=== PATIENT | female | born 1995 | race Hispanic/Latino ===

== ENCOUNTER 2017-03-12 09:00 | Emergency (ER) | payer MEDICAID, OTHER ==
[2017-03-12 09:33] LABS: APPEARANCE,URINE SL CLOUDY (CLEAR); BILIRUBIN,URINE NEGATIVE (NEGATIVE); COLOR,URINE YELLOW (YELLOW); GLUCOSE, URINE (UA) NEGATIVE (NEGATIVE); KETONES,URINE NEGATIVE (NEGATIVE); LEUKOCYTE ESTERASE ,URINE MODERATE (NEGATIVE); NITRATE,URINE NEGATIVE (NEGATIVE); OCCULT BLOOD,URINE LARGE (NEGATIVE); PROTEIN,URINE NEGATIVE (NEGATIVE); UROBILINOGEN,URINE 0.2 mg/dL (0.2-1.0)
[2017-03-12 09:34] LABS: BASOPHILS % (AUTO) 0.4 % (0.0-5.0); EOSINOPHILS % (AUTO) 2.1 % (0.0-8.0); HEMATOCRIT 39.2 % (36-48); LYMPHOCYTES % (AUTO) 13.9 % (21.0-51.0); MEAN CORPUSCULAR HEMOGLOBIN 27.4 pg (27.0-33.0); MEAN CORPUSCULAR HGB CONC 33.9 g/dL (32.0-36.0); MONOCYTES % (AUTO) 6.8 % (3.0-13.0); NEUTROPHILS % (AUTO) 76.8 % (40.0-77.0); PLATELET COUNT (AUTO) 273 K/uL (130-400); RED BLOOD CELL COUNT(AUTO) 4.84 MIL/uL (4.00-5.50); RED CELL DISTRIBUTION WIDTH 13.9 % (11.0-15.5); WHITE BLOOD COUNT (AUTO) 14.4 K/uL (4.8-10.8)
[2017-03-12 09:36] LABS: HCG,QUAL RESULT NEGATIVE (NEGATIVE)
[2017-03-12 10:22] LABS: BACTERIA,URINE Moderate /HPF (None Seen); RBC,URINE 0-1 /HPF (0-1)
[2017-03-12 10:23] LABS: SQUAMOUS EPITHELIAL CELL,UR Many /LPF (0-2)
[2017-03-12] MEDS ORDERED: CEFTRIAXONE SODIUM 500 MG VIAL ONE (10:59)
[2017-03-12] MEDS ORDERED: LIDOCAINE HCL-MPF 1% 2ML VIAL ONE (11:00)
[2017-03-12] MEDS ORDERED: AZITHROMYCIN 250 MG TABLET PO ONE (11:00)
== END 2017-03-12 11:23 | disposition home or self-care (01) ==
LOC: EDH 09:00
DX: N39.0 Urinary tract infection, site not specified (principal); N94.6 Dysmenorrhea, unspecified
CPT/HCPCS: 36415; 81001; 81025; 85025; 87210; 87486; 87797; 96372; 99284; J0696; J3490

== ENCOUNTER 2018-01-22 18:23 | Emergency (ER) | payer MEDICAID, OTHER | END 2018-01-22 20:25 | disposition home or self-care (01) | LOC: EDH 18:23 → EEVIPCON 18:23 → EDH 20:25 | DX: S09.90XA Unspecified injury of head, initial encounter (principal); G44.319 Acute post-traumatic headache, not intractable; Z98.890 Other specified postprocedural states; Z72.0 Tobacco use; Y04.2XXA Assault by strike against or bumped into by another person, initial encounter; Y93.89 Activity, other specified; Y92.89 Other specified places as the place of occurrence of the external cause; Y99.8 Other external cause status | CPT/HCPCS: 70450; 81025 ==

== ENCOUNTER 2018-02-17 00:45 | Emergency (ER) | payer OTHER ==
[2018-02-17 02:58] LABS: BASOPHILS % (AUTO) 0.8 % (0.0-5.0); EOSINOPHILS % (AUTO) 1.8 % (0.0-8.0); HEMATOCRIT 38.8 % (36-48); LYMPHOCYTES % (AUTO) 18.4 % (21.0-51.0); MEAN CORPUSCULAR HEMOGLOBIN 28.3 pg (27.0-33.0); MEAN CORPUSCULAR HGB CONC 33.9 g/dL (32.0-36.0); MEAN CORPUSCULAR VOLUME 83.5 fL (79-99); PLATELET COUNT (AUTO) 271 K/uL (130-400); RED BLOOD CELL COUNT(AUTO) 4.65 MIL/uL (4.00-5.50); WHITE BLOOD COUNT (AUTO) 16.2 K/uL (4.8-10.8)
[2018-02-17 03:16] LABS: CREATININE 0.7 mg/dL (0.5-1.5); POTASSIUM 3.4 mmol/L (3.5-5.1)
[2018-02-17 03:21] LABS: APPEARANCE,URINE Cloudy (CLEAR); BILIRUBIN,URINE Negative (NEGATIVE); COLOR,URINE Yellow (YELLOW); GLUCOSE, URINE (UA) Negative (NEGATIVE); KETONES,URINE Trace mg/dL (NEGATIVE); LEUKOCYTE ESTERASE ,URINE Small (NEGATIVE); NITRATE,URINE Negative (NEGATIVE); OCCULT BLOOD,URINE Large (NEGATIVE); PH,URINE 5.5 (5.0-8.0); PROTEIN,URINE Negative (NEGATIVE); UROBILINOGEN,URINE 0.2 mg/dL (0.2-1.0)
[2018-02-17 03:27] LABS: ALBUMIN 3.8 g/dL (3.5-5.0); BILIRUBIN,TOTAL 0.3 mg/dL (0.2-1.0)
[2018-02-17 03:28] LABS: AMPHET/METH SCREEN,URINE NEGATIVE (NEGATIVE); BARBITURATE SCREEN, URINE NEGATIVE (NEGATIVE); BENZODIAZEPINES SCREEN,URINE NEGATIVE (NEGATIVE); CANNABINOID SCREEN,URINE NEGATIVE (NEGATIVE); COCAINE SCREEN,URINE NEGATIVE (NEGATIVE); OPIATE SCREEN,URINE NEGATIVE (NEGATIVE); PHENCYCLIDINE SCREEN,URINE NEGATIVE (NEGATIVE)
[2018-02-17 03:32] LABS: PARTIAL THROMBOPLASTIN TIME 29.9 SEC (26.3-35.5); PROTHROMBIN TIME 10.5 SEC (9.6-11.6)
[2018-02-17 03:51] LABS: BACTERIA,URINE Moderate /HPF (None Seen)
== END 2018-02-17 04:17 | disposition home or self-care (01) ==
LOC: EDH 00:45
DX: O20.9 Hemorrhage in early pregnancy, unspecified (principal); R10.9 Unspecified abdominal pain; R11.0 Nausea; Z3A.01 Less than 8 weeks gestation of pregnancy
CPT/HCPCS: 36415; 76801; 80053; 80305; 81001; 84702; 85025; 85610; 85730

== ENCOUNTER 2018-02-25 17:21 | Emergency (ER) | payer OTHER ==
[2018-02-25 19:00] LABS: BASOPHILS % (AUTO) 0.7 % (0.0-5.0); LYMPHOCYTES % (AUTO) 20.1 % (21.0-51.0); MEAN CORPUSCULAR HEMOGLOBIN 28.6 pg (27.0-33.0); MEAN CORPUSCULAR HGB CONC 34.3 g/dL (32.0-36.0); MEAN CORPUSCULAR VOLUME 83.6 fL (79-99); MONOCYTES % (AUTO) 9.2 % (3.0-13.0); NUCLEATED RED BLOOD CELLS 0.1 % (0.0-0.19); PLATELET COUNT (AUTO) 306 K/uL (130-400); RED BLOOD CELL COUNT(AUTO) 4.55 MIL/uL (4.00-5.50); RED CELL DISTRIBUTION WIDTH 13.7 % (11.0-15.5); WHITE BLOOD COUNT (AUTO) 11.1 K/uL (4.8-10.8)
== END 2018-02-25 20:54 | disposition home or self-care (01) ==
LOC: EDH 17:21
DX: O03.9 Complete or unspecified spontaneous abortion without complication (principal); Z98.890 Other specified postprocedural states; Z72.0 Tobacco use
CPT/HCPCS: 36415; 84702; 85025; 86900; 86901

== ENCOUNTER 2018-07-01 20:05 | Emergency (ER) | payer BC ==
[2018-07-01] MEDS ORDERED: BENZONATATE 100 MG CAPSULE PO ONE (20:49)
[2018-07-01] MEDS ORDERED: ONDANSETRON HCL 4 MG/2 ML VIAL ONE (20:49)
[2018-07-01] MEDS ORDERED: ACETAMINOPHEN EXTRA STRENGTH 500 MG TABLET ONE (20:49)
[2018-07-01 20:57] LABS: BASOPHILS % (AUTO) 0.5 % (0.0-5.0); EOSINOPHILS % (AUTO) 3.3 % (0.0-8.0); HEMATOCRIT 37.8 % (36-48); LYMPHOCYTES % (AUTO) 10.3 % (21.0-51.0); MEAN CORPUSCULAR VOLUME 82.3 fL (79-99); MONOCYTES % (AUTO) 14.3 % (3.0-13.0); NEUTROPHILS % (AUTO) 71.6 % (40.0-77.0); PLATELET COUNT (AUTO) 216 K/uL (130-400); RED BLOOD CELL COUNT(AUTO) 4.59 MIL/uL (4.00-5.50); RED CELL DISTRIBUTION WIDTH 13.7 % (11.0-15.5); WHITE BLOOD COUNT (AUTO) 8.8 K/uL (4.8-10.8)
[2018-07-01 21:11] LABS: CREATININE 0.8 mg/dL (0.5-1.5); POTASSIUM 3.3 mmol/L (3.5-5.1)
[2018-07-01 21:16] LABS: ALBUMIN 3.6 g/dL (3.5-5.0); BILIRUBIN,TOTAL 0.3 mg/dL (0.2-1.0); TOTAL PROTEIN, SERUM 7.5 g/dL (6.0-8.3)
[2018-07-01 21:23] LABS: RAPID GROUP A STREP NEGATIVE (NEGATIVE)
[2018-07-01] MEDS ORDERED: IBUPROFEN 600 MG TABLET ONE (21:35)
[2018-07-01] MEDS ORDERED: POTASSIUM CHLORIDE 20 MEQ ERTAB PO ONE (21:35)
== END 2018-07-01 22:23 | disposition home or self-care (01) ==
LOC: EDH 20:05
DX: J10.1 Influenza due to other identified influenza virus with other respiratory manifestations (principal); Z87.891 Personal history of nicotine dependence
CPT/HCPCS: 36415; 71046; 80053; 81025; 85025; 87804 ×2; 87880; 96374; 99285; J2405

== ENCOUNTER 2018-07-03 16:06 | Emergency (ER) | payer BC ==
[2018-07-03] MEDS ORDERED: LORAZEPAM 2 MG/ML 1 ML VIAL ONE (16:33)
== END 2018-07-03 17:31 | disposition home or self-care (01) ==
LOC: EDH 16:06
DX: R06.4 Hyperventilation (principal); R06.02 Shortness of breath; Z98.890 Other specified postprocedural states
CPT/HCPCS: 96374; 99284; J2060

== ENCOUNTER 2021-08-21 04:40 | Emergency (ER) | payer BC, OTHER ==
[~2021-08-21] VITALS: Ht 152.4 cm; Wt 80.3 kg
[2021-08-21 06:37] VITALS: BP 118/76
[2021-08-21] MEDS ORDERED: ACETAMINOPHEN 500 MG TABLET ONE (06:48)
[2021-08-21] MEDS ORDERED: AMOX500C2 PO (06:48)
[2021-08-21] MEDS ORDERED: IBUP-2070 PO (06:48)
[2021-08-21] MEDS ORDERED: AMOXICILLIN 500 MG CAPSULE PO ONE ×2 (06:48→07:00)
[2021-08-21] MEDS ORDERED: ACETAMINOPHEN 500 MG TABLET PO ONE (07:00)
== END 2021-08-21 06:55 | disposition home or self-care (01) ==
LOC: EDH 04:40
DX: I88.9 Nonspecific lymphadenitis, unspecified (principal); K08.89 Other specified disorders of teeth and supporting structures

== ENCOUNTER 2022-06-29 05:20 | Emergency (ER) | payer OTHER ==
[~2022-06-29] VITALS: Ht 152.4 cm; Wt 80.7 kg
[~2022-06-29 05:20] MED LIST: AMOX500C2 PO; IBUP-2070 PO
[2022-06-29] MEDS ORDERED: ONDANSETRON 4MG INJ IVP ONE (06:00)
[2022-06-29] MEDS ORDERED: 0.9%NACL 1000ML 1,000 ML IV ONE (06:00)
[2022-06-29 06:21] LABS: BASOPHILS % (AUTO) 0.3 % (0.0-5.0); EOSINOPHILS % (AUTO) 2.7 % (0.0-8.0); HEMATOCRIT 36.7 % (36-48); LYMPHOCYTES % (AUTO) 18.4 % (21.0-51.0); MEAN CORPUSCULAR HEMOGLOBIN 28.1 pg (27.0-33.0); MEAN CORPUSCULAR HGB CONC 34.9 g/dL (32.0-36.0); MEAN CORPUSCULAR VOLUME 80.7 fL (79-99); MONOCYTES % (AUTO) 6.7 % (3.0-13.0); NEUTROPHILS % (AUTO) 71.6 % (40.0-77.0); PLATELET COUNT (AUTO) 276 K/uL (130-400); RED BLOOD CELL COUNT(AUTO) 4.55 MIL/uL (4.00-5.50); RED CELL DISTRIBUTION WIDTH 13.1 % (11.0-15.5); WHITE BLOOD COUNT (AUTO) 12.8 K/uL (4.8-10.8)
[2022-06-29 06:24] LABS: APPEARANCE,URINE CLOUDY (CLEAR); BILIRUBIN,URINE NEGATIVE (NEGATIVE); COLOR,URINE LIGHT-YELLOW (YELLOW); GLUCOSE, URINE (UA) NEGATIVE (NEGATIVE); KETONES,URINE NEGATIVE (NEGATIVE); LEUKOCYTE ESTERASE ,URINE 500 Leu/uL (NEGATIVE); NITRATE,URINE NEGATIVE (NEGATIVE); OCCULT BLOOD,URINE NEGATIVE (NEGATIVE); PROTEIN,URINE 10 mg/dL (NEGATIVE); UROBILINOGEN,URINE 0.2 mg/dL (0.2-1.0)
[2022-06-29 06:40] LABS: ALBUMIN 3.9 g/dL (3.5-5.0); CREATININE 0.7 mg/dL (0.5-1.5); TOTAL PROTEIN, SERUM 7.3 g/dL (6.0-8.3)
[2022-06-29 06:53] LABS: MUCUS,URINE RARE LPF (None Seen); OTHER CASTS, URINE 1 /LPF (None Seen); SQUAMOUS EPITHELIAL CELL,UR MOD /HPF (0-2)
[2022-06-29 07:13] VITALS: BP 116/68
[2022-06-29] MEDS ORDERED: AZITHROMYCIN 250 MG TABLET PO ONE (07:20)
[2022-06-29] MEDS ORDERED: AZITHROMYCIN 250 MG TABLET PO SCH (07:30)
[2022-06-29] MEDS ORDERED: ONDA22I PO (07:39)
== END 2022-06-29 07:49 | disposition home or self-care (01) ==
LOC: EDH 05:20
DX: O99.611 Diseases of the digestive system complicating pregnancy, first trimester (principal); K52.9 Noninfective gastroenteritis and colitis, unspecified; O20.0 Threatened abortion; Z3A.01 Less than 8 weeks gestation of pregnancy
CPT/HCPCS: 99285; 96374; 96361; 80053; 84702; 83690; 85025; 86900; 86901; 87077 ×2; 87088; 87186 ×2; 81001; 36415; 76817; J7030; J2405

== ENCOUNTER 2022-07-02 23:19 | Emergency (ER) | payer OTHER ==
[~2022-07-02] VITALS: Ht 152.4 cm; Wt 81.7 kg
[~2022-07-02 23:19] MED LIST changes: +ONDA22I PO
[2022-07-02] MEDS: 0.9%NACL 1000ML 1,000 ML IV SCH (23:51)
[2022-07-02 23:55] LABS: APPEARANCE,URINE CLEAR (CLEAR); BILIRUBIN,URINE NEGATIVE (NEGATIVE); COLOR,URINE COLORLESS (YELLOW); GLUCOSE, URINE (UA) NEGATIVE (NEGATIVE); KETONES,URINE NEGATIVE (NEGATIVE); LEUKOCYTE ESTERASE ,URINE NEGATIVE Leu/uL (NEGATIVE); NITRATE,URINE NEGATIVE (NEGATIVE); OCCULT BLOOD,URINE NEGATIVE (NEGATIVE); PROTEIN,URINE NEGATIVE (NEGATIVE); UROBILINOGEN,URINE 0.2 mg/dL (0.2-1.0)
[2022-07-02 23:58] LABS: BASOPHILS % (AUTO) 0.3 % (0.0-5.0); HEMATOCRIT 35.1 % (36-48); LYMPHOCYTES % (AUTO) 25.2 % (21.0-51.0); MEAN CORPUSCULAR HEMOGLOBIN 27.9 pg (27.0-33.0); MEAN CORPUSCULAR HGB CONC 33.9 g/dL (32.0-36.0); MEAN CORPUSCULAR VOLUME 82.4 fL (79-99); MONOCYTES % (AUTO) 7.1 % (3.0-13.0); NEUTROPHILS % (AUTO) 64.1 % (40.0-77.0); PLATELET COUNT (AUTO) 263 K/uL (130-400); RED BLOOD CELL COUNT(AUTO) 4.26 MIL/uL (4.00-5.50); RED CELL DISTRIBUTION WIDTH 13.1 % (11.0-15.5); WHITE BLOOD COUNT (AUTO) 15.2 K/uL (4.8-10.8)
[2022-07-03 00:15] LABS: CREATININE 0.7 mg/dL (0.5-1.5); POTASSIUM 3.5 mmol/L (3.5-5.1)
[2022-07-03 00:41] LABS: ALBUMIN 3.7 g/dL (3.5-5.0); TOTAL PROTEIN, SERUM 7.5 g/dL (6.0-8.3)
[2022-07-03] MEDS: 0.9%NACL 1000ML 1,000 ML IV SCH (01:01)
[2022-07-03 01:47] VITALS: BP 110/64
== END 2022-07-03 02:33 | disposition home or self-care (01) ==
LOC: EDH 23:19
DX: O20.0 Threatened abortion (principal); Z3A.01 Less than 8 weeks gestation of pregnancy
CPT/HCPCS: 99284; 96360; 76801; 96361; 80053; 84702; 85025; 86850; 86900; 86901; 81003; 36415; J7030

== ENCOUNTER 2024-09-27 21:31 | Emergency (ER) | payer SELFPAY ==
[~2024-09-27] VITALS: Ht 152.4 cm; Wt 87.1 kg
--- NOTE | 2024-09-27 21:33 | NUR ---
UA CUP PROVIDED
[2024-09-27 22:17] LABS: APPEARANCE,URINE CLEAR (CLEAR); GLUCOSE, URINE (UA) NEGATIVE (NEGATIVE); LEUKOCYTE ESTERASE ,URINE NEGATIVE Leu/uL (NEGATIVE); NITRATE,URINE NEGATIVE (NEGATIVE); OCCULT BLOOD,URINE NEGATIVE (NEGATIVE)
[2024-09-27 22:18] LABS: ADD UA MICROSCOPIC NO
[2024-09-27 22:22] LABS: IMMATURE GRANULOCYTE ABSOLUTE 0.05 K/uL (0-1); NUCLEATED RED BLOOD CELLS 0.0 % (0.0-0.19); PLATELET COUNT (AUTO) 262 K/uL (130-400); RED BLOOD CELL COUNT(AUTO) 4.45 MIL/uL (4.00-5.50); RED CELL DISTRIBUTION WIDTH 13.8 % (11.0-15.5); WHITE BLOOD COUNT (AUTO) 13.3 K/uL (4.8-10.8)
[2024-09-27 22:34] LABS: CREATININE 0.6 mg/dL (0.5-1.0); GLOMERULAR FILTR. RATE CALC 125.0 mL/min (>90); GLUCOSE,RANDOM 104.0 mg/dL (70-105); SODIUM SERUM 140.0 mmol/L (136-145); UREA NITROGEN, BLOOD 12.0 mg/dL (7-18)
[2024-09-27] MEDS: 0.9%NACL 1000ML 1,000 ML IV ONE (23:05)
--- NOTE | 2024-09-27 23:09 | NUR ---
PATIENT TO CT SCAN.
--- NOTE | 2024-09-28 00:19 | HMCIMG ---
EXAM: CT Abdomen and Pelvis without IV contrast. CLINICAL HISTORY: Left flank pain. Rule out ureteric calculus. TECHNIQUE: Thin collimated axial CT images of the abdomen and pelvis were obtained, with sagittal and coronal reformatted images also submitted. A CT scan is done according to ALARA (As Low As Reasonably Achievable). CONTRAST: None. COMPARISON: None. FINDINGS: Unremarkable visualized lung parenchyma. No focal abnormality within the liver, gallbladder, pancreas, spleen, adrenals, or kidneys. Focal area of wall thickening with surrounding fat stranding in the descending colon. Bowel loops are normal in caliber without evidence of obstruction or ileus. The appendix is normal. There is no abnormality within the urinary bladder. Unremarkable reproductive organs. No lymphadenopathy. No free fluid. There is no acute osseous abnormality. IMPRESSIONS: Focal area of wall thickening with surrounding fat stranding in the descending colon, the differentials could be focal acute colitis, acute diverticulitis, or acute epiploic appendagitis. No renal or ureteric calculus. /Julian
[2024-09-28] MEDS ORDERED: AMOX1TAB16 PO (00:46)
--- NOTE | 2024-09-28 00:46 | ERN ---
General Chief Complaint: Flank Pain Stated Complaint: LEFT FLANK PAIN Time Seen by MD: 21:44 Time Seen by Midlevel: 21:44 Source: patient (CONSTITUTIONAL: Negative except for HPIHEAD/FACE: Negative except for HPIEENT: Negative except for HPIRESPIRATORY: Negative except for HPIGASTROINTESTINAL/ABDOMINAL: Negative except for HPIGENITOURINARY: Negative except for HPIMUSCULOSKELETAL: Negative except for HPIINTEGUMENTARY: Negative except for HPINEUROLOGICAL/PSYCH: Negative except for HPIHEMATOLOGIC/LYMPHATIC: Negative except for HPIAll Systems Negative, Except as noted above.13 point review of systems assessed and all negative except for above.) History of Present Illness Initial Comments The patient is a pleasant 28-year-old female presenting to the emergency department for evaluation of left flank pain that started one day ago. The pain is rated seven on a 0-10 scale. She has a associated nausea but no fever, dysuria, diarrhea, or any other symptoms at this time. Allergies: Coded Allergies: No Known Drug Allergies (Unverified Allergy, Unknown, 08/21/21) triamcinolone (Unverified Allergy, Unknown, 09/27/24) Home Meds Active Scripts Amoxicillin/Potassium Clav (Amox Tr-K Clv 875-125 mg Tab) 875 Mg-125 Mg Tablet, 1 EACH PO TID for 5 Days, #15 TAB 0 Refills Prov:LAKE HEARD 09/28/24 Ondansetron HCl (Zofran) 2 Mg/Ml Inj, 4 MG PO Q6H, #12 ML Prov:JOSUE RICK DO 06/29/22 Ibuprofen (Ibuprofen) 600 Mg Tablet, 600 MG PO Q6H PRN for PAIN, #30 TAB Prov:YUMIKO MAGUIRE MD 08/21/21 Amoxicillin (Amoxicillin) 500 Mg Capsule, 500 MG PO TID for 10 Days, #30 CAP 0 Refills Prov:YUMIKO MAGUIRE MD 08/21/21 Past Medical History Past Medical History: Other Medical History Other: TACHYCARDIA Past Surgical History: Surgical History Other: D & C Female( History) LMP: Sep 13, 2024 : 5 Para: 3 Aborts: 2 ROS Dictation CONSTITUTIONAL: Negative except for HPI HEAD/FACE: Negative except for HPI EENT: Negative except for HPI RESPIRATORY: Negative except for HPI GASTROINTESTINAL/ABDOMINAL: Negative except for HPI GENITOURINARY: Negative except for HPI MUSCULOSKELETAL: Negative except for HPI INTEGUMENTARY: Negative except for HPI NEUROLOGICAL/PSYCH: Negative except for HPI HEMATOLOGIC/LYMPHATIC: Negative except for HPI All Systems Negative, Except as noted above. 13 point review of systems assessed and all negative except for above. Physical Exam Physical Exam Dictation Vital Signs reviewed General Appearance: Alert, oriented x 3, no acute distress, well developed, nourished. Head and Face: non-traumatic. Eyes: PERRL, pink conjunctivas, eyelid no trauma, anterior chamber with arcus senilis. Ears: Pinnas intact and no signs of trauma or erythema ear canals clear and no discharge TM no erythema Nose: No discharge, no bleeding. Oropharynx: Mouth normal, tongue pink, pharynx clear,no erythema, tonsils no exudates, no abscesses noted, mucous membrane moist Neck: Supple, non-tender, no thyromegaly, no masses, no JVD, no bruits Breast:Deferred Chest:No tenderness, no crepitus, no paradoxical movement, no retractions Lungs:Clear, well-ventilated, symmetric, no rales, no wheezing, no rhonchi, no stridor, good breath sounds bilaterally Heart: Regular rate, regular rhythm, no murmur, no gallops Vascular: no peripheral edema, Abdomen: Soft, positive bowel sounds, nondistended, no guarding, Left lower quadrant abdominal tenderness, no rebound, no masses no hepatomegaly, no splenomegaly, no Long's sign, no hernias. Rectal: Deferred Genital: Deferred Neurological: Normal speech, motor function intact, sensory function intact Musculoskeletal: Neck nontender, full range of motion, back nontender, full range of motion, Extremities: nontender, full range of motion Skin: Color pink, dry, no turgor, no rash, no lacerations, no abrasions, no contusions. Lymphatic: Deferred Results Laboratory and Microbiology Lab and Micro Result Laboratory Tests Test 09/27/24 22:03 09/27/24 22:09 Urine Color COLORLESS (YELLOW) Urine Appearance CLEAR (CLEAR) Urine pH 6.0 (5.0-8.0) Urine Specific [place] 1.006 (1.001-1.031) Urine Protein NEGATIVE mg/dL (NEGATIVE) Urine Glucose (UA) NEGATIVE mg/dL (NEGATIVE) Urine Ketones NEGATIVE mg/dL (NEGATIVE) Urine Occult Blood NEGATIVE (NEGATIVE) Urine Nitrate NEGATIVE (NEGATIVE) Urine Bilirubin NEGATIVE mg/dL (NEGATIVE) Urine Urobilinogen 0.2 mg/dL (0.2-1.0) Urine Leukocyte Esterase NEGATIVE Andrés/uL White Blood Count 13.3 K/uL (4.8-10.8) H Red Blood Count 4.45 MIL/uL (4.00-5.50) Hemoglobin 12.2 g/dL (12.0-16.0) Hematocrit 37.3 % (36-48) Mean Corpuscular Volume 83.8 fL (79-99) Mean Corpuscular Hemoglobin 27.4 pg (27.0-33.0) Mean Corpuscular Hemoglobin Concent 32.7 g/dL (32.0-36.0) Red Cell Distribution Width 13.8 % (11.0-15.5) Platelet Count 262 K/uL (130-400) Mean Platelet Volume 9.9 fL (7.5-10.5) Immature Granulocyte % (Auto) 0.4 % (0-1) Neutrophils (%) (Auto) 61.4 % (40.0-77.0) Lymphocytes (%) (Auto) 27.4 % (21.0-51.0) Monocytes (%) (Auto) 8.1 % (3.0-13.0) Eosinophils (%) (Auto) 2.3 % (0.0-8.0) Basophils (%) (Auto) 0.4 % (0.0-5.0) Neutrophils # (Auto) 8.1 K/uL (1.8-7.7) H Lymphocytes # (Auto) 3.6 K/uL (1.0-4.8) Monocytes # (Auto) 1.1 K/uL (0.1-1.0) H Eosinophils # (Auto) 0.31 K/uL (0.00-0.70) Basophils # (Auto) 0.05 K/uL (0.00-0.20) Absolute Immature Granulocyte (auto 0.05 K/uL (0-1) Nucleated Red Blood Cells 0.0 % (0.0-0.19) Sodium Level 140 mmol/L (136-145) Potassium Level 3.6 mmol/L (3.5-5.1) Chloride Level 105 mmol/L (101-111) Carbon Dioxide Level 28 mmol/L (21-32) Blood Urea Nitrogen 12 mg/dL (7-18) Creatinine 0.6 mg/dL (0.5-1.0) Glomerular Filtration Rate Calc 125 mL/min (>90) Random Glucose 104 mg/dL (70-105) Total Calcium 8.9 mg/dL (8.5-10.1) Serum Test, Qualitative NEGATIVE (NEGATIVE) Labs Reviewed?: Yes MDM MDM: The patient is a pleasant 28-year-old female presenting to the emergency department for evaluation of left flank pain that started one day ago. The pain is rated seven on a 0-10 scale. She has a associated nausea but no fever, dysuria, diarrhea, or any other symptoms at this time. On physical examination patient appears to be in mild discomfort. She has a left lower quadrant abdominal tenderness with no rebound or guarding. Initial vital signs show a temperature of 97.9 with a heart rate of 105 beats per minute. Patient is nontoxic appearing. CBC shows leukocytosis with a left shift. No anemia or thrombocytopenia noted. Chemistries are unremarkable. A CT scan was performed given patient's left lower quadrant pain that has been persistent in the emergency department. CT scan shows findings concerning for diverticulitis. Patient was given 1 g of ceftriaxone in the emergency department and will be discharged home with a prescription for Augmentin. Differential diagnosis: Constipation, diverticulitis, gastroenteritis There are no social concerns with this patient. Prescription drug management Prescriptions will include: Augmentin Medical management and examination interpretation discussions were had by me with other qualified healthcare professionals as indicated for the patient's care. ED Course Orders Procedure Category Date Status Time Cbc With Differential LAB 09/27/24 Complete 22:02 Basic Metabolic Panel LAB 09/27/24 Complete 22:02 Testing, LAB 09/27/24 Complete Serum Hcg 22:02 Urinalysis Profile LAB 09/27/24 Complete 22:02 0.9%Nacl 1000ml (Ns PHA 09/27/24 Complete 1000ml) 23:00 Ketorolac PHA 09/27/24 Complete Tromethamine 15mg/Ml 23:00 Ct Abdomen/Pelvis W/O CT 09/27/24 Resulted Contrast 22:47 Ceftriaxone 2gm Vial PHA 09/28/24 Complete (Rocephin 2gm Inj) 01:00 Current Medications Medications (Trade) Dose Ordered Sig/Karl Route PRN Reason Start Time Stop Time Status Last Admin Dose Admin Ceftriaxone Sodium (Rocephin 2gm Inj) 2 gm ONCE ONCE IVPB 09/28/24 01:00 09/28/24 01:01 DC 09/28/24 00:40 Ketorolac Tromethamine (toRADol) 15 mg ONCE ONCE IV 09/27/24 23:00 09/27/24 23:01 DC 09/27/24 23:05 Sodium Chloride 1,000 ml @ 0 mls/hr ONCE ONCE IV 09/27/24 23:00 09/27/24 23:01 DC 09/27/24 23:05 Vital Signs Date Time Temp Pulse Resp B/P (MAP) Pulse Ox O2 Delivery O2 Flow Rate FiO2 09/28/24 01:07 98.4 88 18 124/79 98 Room Air* 0 21 09/28/24 00:04 92 18 124/79 98 Room Air* 0 09/27/24 22:09 98.2 102 16 140/85 98 Room Air* 0 09/27/24 21:33 97.9 105 20 142/87 100 Room Air DX & DISP Disposition: Discharge Departure Impression: Primary Impression: Diverticulitis Condition: Stable Scripts Amoxicillin/Potassium Clav (Amox Tr-K Clv 875-125 mg Tab) 875 Mg-125 Mg Tablet 1 EACH PO TID for 5 Days, #15 TAB 0 Refills Prov: LAKE HEARD 09/28/24 Referrals: SELF,REFERRAL (PCP) Time of Disposition: 00:45 I have reviewed the case, and I agree with, Diagnosis and Plan I performed the substantive portion of the visit. I have reviewed and personally made and approve the management plan that is documented in the note by myself or the MODE. I acknowledge for responsibility for the patient's management plan. LAKE HEARD Sep 28, 2024 00:46
[2024-09-28 01:07] VITALS: BP 124/79; PULSE 88; RESP 18; TEMP 98.4; O2SAT 98
== END 2024-09-28 01:08 | disposition home or self-care (01) ==
LOC: EDH 21:31
DX: K57.32 Diverticulitis of large intestine without perforation or abscess without bleeding (principal); Z98.890 Other specified postprocedural states
CPT/HCPCS: 99285; 74176; 96374; 80048; 84703; 85025; 81003; 36415; 96375; J1885; J7030; J0696